=== PATIENT | female | born 1970 | race Caucasian/White ===

== ENCOUNTER 2017-11-30 19:53 | Emergency (ER) | payer BC, SELFPAY ==
[2017-11-30 20:16] VITALS: BP 120/78; PULSE 90; RESP 18; TEMP 37.2; O2SAT 97; BMI 18.8
--- NOTE | 2017-11-30 20:25 | HMH.EDUTC ---
[facility] [place] Disposition Clinical Impression: Sinusitis Qualifiers: Sinusitis location: maxillary Chronicity: acute Recurrence: non-recurrent Qualified Code(s): J01.00 - Acute maxillary sinusitis, unspecified Disposition: Home, Self-Care Condition on Discharge: Good Instructions: DI for Sinusitis Prescriptions: Amoxicillin/Potassium Clav [Augmentin 875-125 Tablet] 1 tab PO Q12H 10 Days #20 tab methylPREDNISolone [Medrol] 4 mg PO DAILY 6 Days #21 tab.ds.pk Referrals: Liudmila Crowder APRN [Primary Care Provider] - Time of Disposition: 20:38 Medical Decision Making - Antonio Inquiry Pt receiving controlled substance: No Vital Signs: 11/30/17 20:16 Temperature 99 F Temperature Source Oral Pulse Rate [Right Radial] 90 Respiratory Rate 18 Blood Pressure [Right Arm] 120/78 Blood Pressure Mean [Right Arm] 92 Blood Pressure Source [Right Arm] Automatic Cuff Blood Pressure Position [Right Arm] Sitting 02 Sat by Pulse Oximetry 97 Oxygen Delivery Method Room Air - Lab Data Lab results reviewed: Yes: I reviewed the patient's lab results. [facility] [place] HPI - General Stated complaint: cough,congestion Time Seen by Provider: 11/30/17 20:25 Mode of Arrival: Family Vehicle Source of Information: Patient Limitations: No Limitations Description of Symptoms (Recalled from Triage Doc. by RN): PT C/O HEADACHE,SORE THROAT,CONGESTION FOR 2 DAYS. HEENT Symptoms (Recalled from RN notes): Yes (HEADACHE, SORE THROAT, CONGESTION) Resp Symptoms (Recalled from RN notes): No Skin Symptoms (Recalled from RN notes): No MS Symptoms (Recalled from RN notes): No Functional Status (Recalled from RN notes): NA - History of Present Illness Provider Complaint: Cough, congestion, bilateral ear pain X 2-3 days. No fever. Has been extremely tired and fatigued. No vomiting or diarrhea. Onset (ago): day(s) (3) Location: chest Relieving factors: none Exacerbating factors: none Associated symptoms: cough, headaches, malaise Treatments prior to arrival: none - Related Data Home Medications Medication Instructions Recorded Confirmed ALPRAZolam [Alprazolam 0.25mg 0.25 mg PO DAILY 11/30/17 11/30/17 Tab] Cyclobenzaprine HCl 10 mg PO DAILY 11/30/17 11/30/17 [Cyclobenzaprine 10mg Tab] Fenofibrate Nanocrystallized 145 mg PO DAILY 11/30/17 11/30/17 [Fenofibrate] Fluoxetine HCl [Fluoxetine HCl] 40 mg PO DAILY 11/30/17 11/30/17 Levothyroxine Sodium 50 mcg PO DAILY 11/30/17 11/30/17 [Levothyroxine 50mcg (0.05mg) Tab] Omeprazole [Omeprazole 20mg 20 mg PO DAILY 11/30/17 11/30/17 Capsule] Simvastatin [Simvastatin] 20 mg PO DAILY 11/30/17 11/30/17 Spironolactone [Spironolactone 25 mg PO DAILY 11/30/17 11/30/17 25mg Tab] Previous Rx's Medication Instructions Recorded Amoxicillin/Potassium Clav 1 tab PO Q12H 10 Days #20 tab 11/30/17 [Augmentin 875-125 Tablet] methylPREDNISolone [Medrol] 4 mg PO DAILY 6 Days #21 tab.ds.pk 11/30/17 Allergies Allergy/AdvReac Type Severity Reaction Status Date / Time No Known Allergies Allergy Verified 11/30/17 20:22 - Worker's Comp Is this a Worker's Comp case?: No [facility] History I have reviewed the patient's past medical history: Yes Medical History: Denies:: Cancer, Diabetes Mellitus Type 1, Diabetes Mellitus Type 2, MRSA Laterality Cases: Bilateral: Tonsillectomy Amputation: No Fractures: No - Social History Smoking Status: Never smoker Alcohol Intake: never - Psychiatric History Expresses thoughts of harming self/others: None Suicide Plan Description: No Plan ROS Obtained: Yes All systems reviewed & no additional complaints - Constitutional Constitutional: Reports fever(s) - ENT Ears, Nose, Mouth, and Throat: Reports nasal congestion, Reports sinus pain, Reports sore throat - Respiratory Respiratory: Yes cough Physical Exam - General General appearance: alert, in no apparent distress - Head Head exam: atraumatic, normocephalic, normal inspection -
[2017-11-30 20:27] LABS: UTC Strep Screen (Rapid) Negative (Negative)
[2017-11-30 20:31] LABS: UTC Influenza A Antigen Negative (Negative); UTC Influenza B Antigen Negative (Negative)
--- NOTE | 2017-11-30 20:34 | ED_ITS ---
[facility] [place] Clinical Impression: Sinusitis Qualifiers: Sinusitis location: maxillary Chronicity: acute Recurrence: non-recurrent Qualified Code(s): J01.00 - Acute maxillary sinusitis, unspecified Disposition: Home, Self-Care Condition on Discharge: Good Instructions: DI for Sinusitis Prescriptions: Amoxicillin/Potassium Clav [Augmentin 875-125 Tablet] 1 tab PO Q12H 10 Days #20 tab methylPREDNISolone [Medrol] 4 mg PO DAILY 6 Days #21 tab.ds.pk Referrals: Liudmila Crowder APRN [Primary Care Provider] - Time of Disposition: 20:38 Medical Decision Making - Antonio Inquiry Pt receiving controlled substance: No Vital Signs: 11/30/17 20:16 Temperature 99 F Temperature Source Oral Pulse Rate [Right Radial] 90 Respiratory Rate 18 Blood Pressure [Right Arm] 120/78 Blood Pressure Mean [Right Arm] 92 Blood Pressure Source [Right Arm] Automatic Cuff Blood Pressure Position [Right Arm] Sitting 02 Sat by Pulse Oximetry 97 Oxygen Delivery Method Room Air - Lab Data Lab results reviewed: Yes: I reviewed the patient's lab results. [facility] [place] HPI - General Stated complaint: cough,congestion Time Seen by Provider: 11/30/17 20:25 Mode of Arrival: Family Vehicle Source of Information: Patient Limitations: No Limitations Description of Symptoms (Recalled from Triage Doc. by RN): PT C/O HEADACHE,SORE THROAT,CONGESTION FOR 2 DAYS. HEENT Symptoms (Recalled from RN notes): Yes (HEADACHE, SORE THROAT, CONGESTION) Resp Symptoms (Recalled from RN notes): No Skin Symptoms (Recalled from RN notes): No MS Symptoms (Recalled from RN notes): No Functional Status (Recalled from RN notes): NA - History of Present Illness Provider Complaint: Cough, congestion, bilateral ear pain X 2-3 days. No fever. Has been extremely tired and fatigued. No vomiting or diarrhea. Onset (ago): day(s) (3) Location: chest Relieving factors: none Exacerbating factors: none Associated symptoms: cough, headaches, malaise Treatments prior to arrival: none - Related Data Home Medications Medication Instructions Recorded Confirmed ALPRAZolam [Alprazolam 0.25mg 0.25 mg PO DAILY 11/30/17 11/30/17 Tab] Cyclobenzaprine HCl 10 mg PO DAILY 11/30/17 11/30/17 [Cyclobenzaprine 10mg Tab] Fenofibrate Nanocrystallized 145 mg PO DAILY 11/30/17 11/30/17 [Fenofibrate] Fluoxetine HCl [Fluoxetine HCl] 40 mg PO DAILY 11/30/17 11/30/17 Levothyroxine Sodium 50 mcg PO DAILY 11/30/17 11/30/17 [Levothyroxine 50mcg (0.05mg) Tab] Omeprazole [Omeprazole 20mg 20 mg PO DAILY 11/30/17 11/30/17 Capsule] Simvastatin [Simvastatin] 20 mg PO DAILY 11/30/17 11/30/17 Spironolactone [Spironolactone 25 mg PO DAILY 11/30/17 11/30/17 25mg Tab] Previous Rx's Medication Instructions Recorded Amoxicillin/Potassium Clav 1 tab PO Q12H 10 Days #20 tab 11/30/17 [Augmentin 875-125 Tablet] methylPREDNISolone [Medrol] 4 mg PO DAILY 6 Days #21 tab.ds.pk 11/30/17 Allergies Allergy/AdvReac Type Severity Reaction Status Date / Time No Known Allergies Allergy Verified 11/30/17 20:22 - Worker's Comp Is this a Worker's Comp case?: No H History I have reviewed the patient's past medical history: Yes Medical History: Denies:: Cancer, Diabetes Mellitus Type 1,
[2017-11-30 20:49] VITALS: BP 115/83; PULSE 85; RESP 16; TEMP 36.9; O2SAT 100
== END 2017-11-30 20:54 | disposition home or self-care (01) ==
PROVIDERS: Emergency Provider Physician Assistant; PCP Nurse Practitioner
DX: J01.00 Acute maxillary sinusitis, unspecified (principal)
CPT/HCPCS: 87804; 87880; 96372; 99202

== ENCOUNTER → 2018-05-05 16:14 | Outpatient (CLI) | payer BC, SELFPAY ==
--- NOTE | 2018-05-05 16:18 | MM_ITS ---
MM Dig screening mamm BI w/CAD CAD Screening COMPARISON: Digital mammograms with CAD 04/14/2017 and 04/12/2016 INDICATION: There is a history of breast cancer in patient's maternal great-grandmother TECHNIQUE: Standard CC and MLO images were obtained. R2 CAD reviewed. FINDINGS: There is a diffusely dense and heterogenic parenchymal pattern lessening the sensitivity of mammography. The findings of the lateral symmetrical. There are couple benign-appearing calcifications left breast. There is no suspicious lesion and there are no suspicious microcalcifications. IMPRESSION: Dense parenchymal pattern with no suspicious lesion seen BI-RADS Category: 2 Benign Finding(s) RECOMMENDED FOLLOW-UP: 1YR - 1 YEAR FOLLOW-UP (A letter has been sent to the patient regarding results of the study.)
== END ==
PROVIDERS: PCP Nurse Practitioner; Visit Provider Obstetrics & Gynecology
DX: Z12.31 Encounter for screening mammogram for malignant neoplasm of breast (principal)
CPT/HCPCS: 77067

== ENCOUNTER → 2018-05-06 14:34 | Outpatient (POV) | payer BC, SELFPAY | PROVIDERS: PCP Nurse Practitioner | DX: Z00.00 Encounter for general adult medical examination without abnormal findings (principal) ==

== ENCOUNTER → 2019-06-09 08:06 | Outpatient (CLI) | payer BC, SELFPAY ==
--- NOTE | 2019-06-09 08:08 | MM_ITS ---
PROCEDURE: MM DIG SCREENING MAMM BI W/CAD CLINICAL INDICATION: SCREENING There is a history of breast cancer in the patient's maternal great grandmother. There is been previous biopsy right breast for benign disease. COMPARISON: [facility] DIG MAMM-SCREEN [facility] from 04/12/2016 [facility] DIG MAMM-SCREEN [facility] W/CAD from 04/14/2017 [facility] MM Dig screening mamm BI w/CAD from 05/05/2018 TECHNIQUE: Standard CC and MLO images were obtained. R2 CAD reviewed. FINDINGS: Prominent heterogenic fibroglandular densities are seen in the central portions of both breasts and findings are bilateral and symmetrical. IMPRESSION: There are stable nodular densities in each breast. There is no suspicious lesion and no suspicious microcalcifications. BI-RAD Category: 2 Benign Finding(s) FOLLOW-UP: 1YR 1 Year Follow-up (A letter has been sent to the patient regarding results of the study.) Dictated by: Dr. Yovany Zapata MD 06/09/2019 11:[address] Yovany Zapata MD in [place] 06/09/2019 11:42
== END ==
PROVIDERS: PCP Nurse Practitioner; Visit Provider Obstetrics & Gynecology
DX: Z12.31 Encounter for screening mammogram for malignant neoplasm of breast (principal)
CPT/HCPCS: 77067

== ENCOUNTER → 2019-06-23 13:34 | Outpatient (POV) | payer BC, SELFPAY | PROVIDERS: Visit Provider Internal Medicine | DX: Z00.00 Encounter for general adult medical examination without abnormal findings (principal) ==

== ENCOUNTER → 2020-06-13 16:13 | Outpatient (CLI) | payer BC, SELFPAY ==
--- NOTE | 2020-06-13 16:16 | MM_ITS ---
PROCEDURE: MM DIG SCREENING MAMM BI W/CAD Digital Breast Tomosynthesis Included CLINICAL INDICATION: SCREENING There is a history of breast cancer in the patient's maternal great grandmother. There has been a previous biopsy right breast for benign disease. COMPARISON: MG [facility] DIG MAMM-SCREEN [facility] W/CAD from 04/14/2017 MG [facility] MM Dig screening mamm BI w/CAD from 05/05/2018 MG MM DIG SCREENING MAMM BI W/CAD from 06/09/2019 TECHNIQUE: Standard CC and MLO images and 3D Tomosynthesis was obtained. R2 CAD reviewed. FINDINGS: Prominent diffuse somewhat heterogenic fibroglandular densities are seen in both breast primarily upper outer quadrants. The findings are bilateral and symmetrical. There is a stable benign-appearing nodular density left breast. There is no suspicious lesion and no suspicious microcalcifications. IMPRESSION: Moderately dense and heterogenic parenchymal pattern with no suspicious lesions seen BI-RAD Category: 2 Benign Finding(s) FOLLOW-UP: 1YR 1 Year Follow-up (A letter has been sent to the patient regarding results of the study.) Dictated by: Dr. Yovany Zapata MD 06/19/2020 10:26 Dr. Yovany Zapata MD in [place] 06/19/2020 10:26
== END ==
PROVIDERS: PCP Nurse Practitioner; Visit Provider Obstetrics & Gynecology
DX: Z12.31 Encounter for screening mammogram for malignant neoplasm of breast (principal)
CPT/HCPCS: 77063; 77067

== ENCOUNTER → 2020-07-26 14:38 | Outpatient (POV) | payer BC, SELFPAY | DX: Z00.00 Encounter for general adult medical examination without abnormal findings (principal) ==

== ENCOUNTER 2020-08-27 16:49 | Emergency (ER) | payer BC, SELFPAY ==
[2020-08-27 16:55] VITALS: BP 130/68; PULSE 92; RESP 18; TEMP 36.7; O2SAT 99; BMI 32.1
--- NOTE | 2020-08-27 17:08 | HMH.EDUTC ---
[facility] [place] Clinical Impression: Encounter for laboratory testing for COVID-19 virus Disposition: Home, Self-Care Condition on Discharge: Good Instructions: DI for Nasal Congestion, Preventing the Spread of Coronavirus Discharge Instructions Additional Instructions: *Monitor Temp, Over the counter Motrin or Tylenol as directed/as needed Tylenol every 4 hours and Motrin every 6 hours (as long as your family doctor has told you that you can take it) for fever or pain. and straight to ER if unable to lower temp less than 101.0 after medication given *Warm salt water gargles may help to soothe the throat *Throat Lozenges *Warm fluids like tea with honey may help to soothe the throat *Sleep elevated *Humidifier/Vaporizer Follow up IMMEDIATELY for new or worsening symptoms or no Noticeable improvement over the next 48-72 hours. 911 for difficulty breathing or swallowing You were tested for today for COVID19 your test result should be back in the next 24-48 hours, you may call to the [facility] to see if your test results are back in the next 48 hours [phone] [facility] hours are 9am-9pm You was given a handout with instructions for Self Quarantine and Self isolation for while you wait on test results and what to do if they are positive If you are positive the Health Dept will be contacting you also Referrals: Liudmila Crowder APRN [Primary Care Provider] - As needed Forms: Work/School Release Time of Disposition: 17:09 Medical Decision Making - Antonio Inquiry Pt receiving controlled substance: No Antonio was queried for this patient: No Vital Signs: 08/27/20 16:55 Temperature 98.1 F Temperature Source Oral Pulse Rate [Radial] 92 H Respiratory Rate 18 Blood Pressure [Right Arm] 130/68 Blood Pressure Mean [Right Arm] 88 Blood Pressure Source [Right Arm] Automatic Cuff Blood Pressure Position [Right Arm] Sitting 02 Sat by Pulse Oximetry 99 Oxygen Delivery Method Room Air Orders (Tests/Meds): ORDERS Category Date Time Status Covid-19 Nasal PCR Sendout [facility] 08/27/20 16:55 [place] [facility] [place] - General Stated complaint: Cold symptoms;No taste or smell. Time Seen by Provider: 08/27/20 17:08 Mode of Arrival: Ambulatory Source of Information: Patient Limitations: No Limitations Description of Symptoms (Recalled from Triage Doc. by RN): cold like symptoms, no taste or smell. HEENT Symptoms (Recalled from RN notes): Yes Resp Symptoms (Recalled from RN notes): No Skin Symptoms (Recalled from RN notes): No MS Symptoms (Recalled from RN notes): No Functional Status (Recalled from RN notes): wnl - History of Present Illness Provider Complaint: Patient states that she has been having nasal congestion on and off for a week like she normally has this time of year State that she noticed yesterday that the food she was eating tasted funny and continued to get worse throughout the evening States that today she noticed she is unable to smell or taste anything so she came in to get tested for COVID - Related Data Home Medications Medication Instructions Recorded Confirmed ALPRAZolam [Alprazolam 0.25mg 0.25 mg PO DAILY 11/30/17 07/01/18 Tab] Fenofibrate Nanocrystallized 145 mg PO DAILY 11/30/17 07/01/18 [Fenofibrate] Fluoxetine HCl 40 mg PO DAILY 11/30/17 07/01/18 Levothyroxine Sodium 50 mcg PO DAILY 11/30/17 07/01/18 [Levothyroxine 50mcg (0.05mg) Tab] Omeprazole [Omeprazole 20mg 20 mg PO DAILY 11/30/17 07/01/18 Capsule] Simvastatin 20 mg PO DAILY 11/30/17 07/01/18 Spironolactone [Spironolactone 25 mg PO DAILY 11/30/17 07/01/18 25mg Tab] Previous Rx's Medication Instructions Recorded amoxicillin 500 mg capsule 500 mg PO Q12H 10 Days #20 cap 01/03/19 Allergies Allergy/AdvReac Type Severity Reaction Status Date / Time No Known Allergies Allergy Verified 01/03/19 11:31 - Worker's Comp Is this a Worker's Comp case?: No H History - Hepatitis A Screen Drug
[2020-08-27 17:19] VITALS: BP 130/68; PULSE 92; RESP 18; TEMP 36.7; O2SAT 99
[2020-08-29 13:05] LABS: Covid-19 Nasal PCR Sendout Lex Positive
--- NOTE | 2020-08-29 13:09 | PC.NURSE ---
PT CALLED AND NOTIFIED OF POSITIVE COVID RESULT
== END 2020-08-27 17:21 | disposition home or self-care (01) ==
PROVIDERS: Emergency Provider Nurse Practitioner; PCP Nurse Practitioner
DX: U07.1 COVID-19 (principal); K21.9 Gastro-esophageal reflux disease without esophagitis; E78.5 Hyperlipidemia, unspecified; Z79.899 Other long term (current) drug therapy
CPT/HCPCS: 99201; U0004

== ENCOUNTER → 2020-12-18 09:17 | Outpatient (CLI) | payer BC, SELFPAY ==
--- NOTE | 2020-12-18 09:25 | XR_ITS ---
PROCEDURE: XR MULTIPLE SPINE 6+V CLINICAL INDICATION: CERVICALGIA, LOW BACK PAIN COMPARISON: No exams were available for comparison FINDINGS: Cervical spine: Normal alignment. Mild degenerative disc disease C5-C6 with minimal endplate hypertrophic change. Foraminal narrowing is present on the right and to lesser degree on the left at C5-C6. Lumbar spine: Facet arthritic changes are noted at L4-5 and L5-S1 with bony hypertrophy and osteosclerosis. There is grade 2 spondylitic spondylolisthesis of L5 on S1 of approximately 19 mm with degenerative disc disease at that level. IMPRESSION: Cervical spine: Normal alignment. Mild degenerative disc disease C5-C6 with minimal endplate hypertrophic change. Foraminal narrowing is present on the right and to lesser degree on the left at C5-C6. No acute fracture. No lytic or blastic change Lumbar spine: Facet arthritic changes are noted at L4-5 and L5-S1 with bony hypertrophy and osteosclerosis. There is grade 2 spondylitic spondylolisthesis of L5 on S1 of approximately 19 mm with degenerative disc disease at that level. No acute fracture. No lytic or blastic change Dictated by: Kervin Medina MD 12/18/2020 11:01 Kervin Medina MD in [place] 12/18/2020 11:01
== END ==
PROVIDERS: PCP Nurse Practitioner Family; Visit Provider Family Medicine
DX: M54.2 Cervicalgia (principal); M54.5 Low back pain
CPT/HCPCS: 72084

== ENCOUNTER → 2021-01-11 13:41 | Outpatient (POV) | payer BC, SELFPAY ==
[2021-01-11 14:02] VITALS: BP 141/74; PULSE 74; RESP 18; O2SAT 98; BMI 31.8
--- NOTE | 2021-01-15 08:25 | HMH.PMCON ---
Assessment and Plan (1) Neck pain Status: Chronic Category: Medical Code(s): M54.2 - Cervicalgia (2) Degenerative disc disease, cervical Status: Chronic Category: Medical Code(s): M50.30 - Other cervical disc degeneration, unspecified cervical region (3) Degenerative disc disease, lumbar Status: Chronic Category: Medical Code(s): M51.36 - Other intervertebral disc degeneration, lumbar region (4) Back pain Status: Chronic Category: Medical Code(s): M54.9 - Dorsalgia, unspecified - Assessment and plan all Dx Assessment and Plan for all problems:: The patient is on a very appropriate dose of Anahola 5 mg 1 p.o. 3 times daily. I discussed with her that if she is uninterested in our offerings interventionally. That I would recommend to continue her current dose. Patient does have an appropriate ORT and has done well with this. If patient finds that her medication needs increase at that time she is welcome to return for reconsideration of injective therapy. Dr. Lance has reviewed this note and agrees with this plan of care. This note was dictated using voice recognition software and may contain errors or omissions HPI - Data of Consult Consult date: 01/11/21 Requesting Physician: Regina Agarwal APRN Primary Care Provider: Keke Garcia APRN - Consult Narrative Reason for consult: Back pain History of present illness: Ms. Diane is a 50 year old female who presents today for consultation regards to her neck and low back pain. Patient states all activity increases pain while nothing truly decreases it. She has numbness and tingling in all extremities. Patient started having issues with her lower back back in 2000 and began having issues with her neck in 2008. Patient has seen child day care teacher, physical therapy. Patient is currently on a medication regimen that includes Anahola 5 mg 1 p.o. 3 times daily. Patient states that this is very beneficial for her. Patient and I had a discussion in regards to what we can offer her at this location. Patient is uninterested in injective therapy. She is also uninterested in any implantable therapies. Patient is uninterested in pursuing any kind of surgical consultation. Patient states that at this time she feels that she is managed well with her Anahola. CC: Regina Agarwal APRN [facility] History I have reviewed the patient's past medical history: Yes Medical History: Reports:: Gastroesophageal Reflux Disease(GERD), Hyperlipidemia Denies:: Cancer, Diabetes Mellitus Type 1, Diabetes Mellitus Type 2, MRSA *Have you ever received a pneumonia vaccine?: Yes *Have you received a flu vaccine this season?: Yes Other Medical History: Reports: Arthritis, Hypothyroidism Laterality Cases: Bilateral: Tonsillectomy Other Surgeries: Yes: Hysterectomy-Total, Sinus Surgery Amputation: No Fractures: No - *Social History Smoking Status: Never smoker Alcohol Intake: never Substance Use Type: denies use *Occupational Status:: other Housing: house Household Members: other *Travel in the last 8 weeks: None Family Hx:: No significant family history Review of Systems - Review of Systems ROS General: no recent weight change, no fever, no sleep disturbances Respiratory: no cough, no shortness of air, no recurring pulmonary infections Cardiovascular/Peripheral Vascular: No chest pain, No palpitations, no edema, no shortness of breath. Gastrointestinal: no new onset incontinence, normal bowel movements reported Genitourinary: no new onset incontinence Musculoskeletal: Neck pain, back pain Psychiatric: normal mood/ affect Neurological: [denies new onset weakness in extremities], [denies new onset balance issues] Meds Home Medications Medication Instructions Recorded Confirmed Type ALPRAZolam [Alprazolam 0.25mg 0.25 mg PO DAILY 11/30/17 07/01/18 History Tab] Fenofibrate Nanocrystallized 145 mg PO DAILY 11/30/17 07/01/18 History [Fenofibrate]
== END ==
PROVIDERS: PCP Nurse Practitioner Family; Visit Provider Clinical Nurse Specialist Family Health
DX: M50.30 Other cervical disc degeneration, unspecified cervical region (principal); M51.36 Other intervertebral disc degeneration, lumbar region
CPT/HCPCS: 99202; G0463

== ENCOUNTER → 2021-06-25 10:10 | Outpatient (CLI) | payer BC, SELFPAY ==
--- NOTE | 2021-06-25 10:10 | MM_ITS ---
PROCEDURE INFORMATION: Exam: MG Bilateral Screening 3D Mammography Exam date and time: 06/25/2021 10:10 AM Age: 50 years old Clinical indication: Encounter for screening mammogram for malignant neoplasm of breast TECHNIQUE: Imaging protocol: Bilateral screening tomosynthesis and 2D mammography including computer-aided detection (CAD) when performed. COMPARISON: 06/13/2020, 06/09/2019, 05/05/2018, 04/14/17 FINDINGS: MAMMOGRAPHY: Breast composition: The breasts are heterogeneously dense, which may obscure small masses. Mass: No suspicious masses. Architectural distortion: No suspicious distortion. Calcifications: No suspicious calcifications. Asymmetric density: None. Skin thickening: None. Axillary adenopathy: None. IMPRESSION: No mammographic evidence of malignancy. Annual screening is recommended unless otherwise clinically indicated. ASSESSMENT: BI-RADS Category 1: Negative
== END ==
PROVIDERS: PCP Family Medicine; Visit Provider Obstetrics & Gynecology
DX: Z12.31 Encounter for screening mammogram for malignant neoplasm of breast (principal)
CPT/HCPCS: 77063; 77067

== ENCOUNTER → 2021-08-12 20:37 | Outpatient (CLI) | payer BC, SELFPAY | PROVIDERS: PCP Family Medicine; Visit Provider Nurse Practitioner | DX: Z20.822 Contact with and (suspected) exposure to COVID-19 (principal) | CPT/HCPCS: C9803; U0003; U0005 ==

== ENCOUNTER → 2021-08-14 17:49 | Outpatient (CLI) | payer BC, SELFPAY | PROVIDERS: PCP Family Medicine; Visit Provider Nurse Practitioner | DX: Z20.822 Contact with and (suspected) exposure to COVID-19 (principal) | CPT/HCPCS: C9803; U0003; U0005 ==

== ENCOUNTER → 2022-06-27 09:39 | Outpatient (CLI) | payer BC, SELFPAY ==
--- NOTE | 2022-06-27 09:40 | MM_ITS ---
PROCEDURE INFORMATION: Exam: MG Bilateral Screening 3D Mammography Exam date and time: 06/27/2022 9:39 AM Age: 51 years old Clinical indication: Screening examination TECHNIQUE: Imaging protocol: Bilateral Screening tomosynthesis and 2D mammography including computer-aided detection (CAD) when performed. COMPARISON: 1. MG MM DIG SCREENING MAMM BI W/CAD 06/25/2021 10:23 AM 2. MG MM DIG SCREENING MAMM BI W/CAD 06/13/2020 4:18 PM FINDINGS: MAMMOGRAPHY: Breast composition: The breasts are heterogeneously dense, which may obscure small masses. Mass: None. Architectural distortion: None. Calcifications: No suspicious calcifications. Asymmetric density: None. Skin thickening: None. Axillary adenopathy: None. IMPRESSION: No mammographic evidence of malignancy. Annual screening is recommended unless otherwise clinically indicated. ASSESSMENT: BI-RADS Category 1: Negative
== END ==
PROVIDERS: PCP Family Medicine; Visit Provider Obstetrics & Gynecology
DX: Z12.31 Encounter for screening mammogram for malignant neoplasm of breast (principal)
CPT/HCPCS: 77063; 77067

== ENCOUNTER → 2023-06-30 08:12 | Outpatient (CLI) | payer BC, SELFPAY ==
--- NOTE | 2023-06-30 08:12 | MM_ITS ---
PROCEDURE INFORMATION: Exam: MG Bilateral Screening 3D Mammography Exam date and time: 06/30/2023 8:05 AM Age: 52 years old Clinical indication: Screening examination TECHNIQUE: Imaging protocol: Bilateral Screening tomosynthesis and 2D mammography including computer-aided detection (CAD) when performed. COMPARISON: 1. MG MM DIG SCREENING MAMM BI W/CAD 06/27/2022 9:39 AM 2. MG MM DIG SCREENING MAMM BI W/CAD 06/25/2021 10:23 AM FINDINGS: MAMMOGRAPHY: Breast composition: The breasts are heterogeneously dense, which may obscure small masses. Mass: None. Architectural distortion: None. Calcifications: No suspicious calcifications. Asymmetric density: None. Skin thickening: None. Axillary adenopathy: None. IMPRESSION: No mammographic evidence of malignancy. Annual screening is recommended unless otherwise clinically indicated. ASSESSMENT: BI-RADS Category 1: Negative
== END ==
PROVIDERS: PCP Family Medicine; Visit Provider Obstetrics & Gynecology
DX: Z12.31 Encounter for screening mammogram for malignant neoplasm of breast (principal)
CPT/HCPCS: 77063; 77067

== ENCOUNTER 2024-05-19 10:14 | Outpatient (CLI) | payer BC, SELFPAY | END 2024-05-19 23:59 | disposition home or self-care (01) | LOC: LAB 10:16 | PROVIDERS: PCP Family Medicine; Visit Provider Family Medicine | DX: Z02.9 Encounter for administrative examinations, unspecified (principal) ==

== ENCOUNTER 2024-07-01 09:37 | Outpatient (CLI) | payer BC, SELFPAY ==
--- NOTE | 2024-07-01 09:40 | MM_ITS ---
PROCEDURE INFORMATION: Exam: MG Bilateral Screening 3D Mammography Exam date and time: 07/01/2024 9:43 AM Age: 53 years old Clinical indication: Screening exam. TECHNIQUE: Imaging protocol: Bilateral Screening tomosynthesis and 2D mammography including computer-aided detection (CAD) when performed. COMPARISON: 1. MG MM DIG SCREENING MAMM BI W/CAD 06/30/2023 8:05 AM 2. MG MM DIG SCREENING MAMM BI W/CAD 06/27/2022 9:39 AM FINDINGS: MAMMOGRAPHY: Breast composition: The breasts are heterogeneously dense, which may obscure small masses. Mass: 0.7 cm questioned mass left lateral breast middle depth. Architectural distortion: None. Calcifications: No suspicious calcifications. Asymmetric density: None. Skin thickening: None. Axillary adenopathy: None. IMPRESSION: Questioned subcentimeter left breast mass.Recommend left breast diagnostic mammogram including spot compression views of the left breast in the CC and MLO projections, a full 90 degree lateral view, and left breast ultrasound for further evaluation. ASSESSMENT: BI-RADS Category 0: Incomplete- Need Additional Imaging Evaluation.
== END 2024-07-01 23:59 | disposition home or self-care (01) ==
LOC: RAD 09:40
PROVIDERS: PCP Family Medicine; Visit Provider Obstetrics & Gynecology
DX: Z12.31 Encounter for screening mammogram for malignant neoplasm of breast (principal)
CPT/HCPCS: 77063; 77067

== ENCOUNTER 2024-07-28 14:16 | Outpatient (CLI) | payer BC, SELFPAY ==
--- NOTE | 2024-07-28 14:16 | MM_ITS ---
PROCEDURE INFORMATION: Exam: US Left Breast, Complete MG Left Diagnostic Breast Tomosynthesis Exam date and time: 07/28/2024 2:03 PM Age: 53 years old Clinical indication: Callback for mass in the left breast on screening mammogram. TECHNIQUE: Imaging protocol: Complete ultrasound of all four quadrants of the left breast and the retroareolar regions, including ultrasound of the axilla when performed. Left Diagnostic tomosynthesis and 2D mammography including computer-aided detection (CAD) when performed. Unilateral or bilateral exam. COMPARISON: 1. MG MM DIG SCREENING MAMM BI W/CAD 07/01/2024 9:43 AM 2. MG MM DIG SCREENING MAMM BI W/CAD 06/30/2023 8:05 AM FINDINGS: MAMMOGRAPHY: Breast composition: The breasts are heterogeneously dense, which may obscure small masses (based on the most recent screening mammogram report). Breast mammogram findings: Spot compression views demonstrate an ovoid 0.6 cm mass in the lower outer quadrant the left breast at the middle depth. No associated distortion or suspicious calcifications. ULTRASOUND: Breast ultrasound findings: Ultrasound of the left breast in the lower outer quadrant demonstrates a cyst at 4 o'clock, 3 cm from the nipple measuring 0.5 x 0.3 x 0.5 cm. This is uncertain whether this correlates to the mammogram finding. No suspicious masses are seen. There are lymph nodes in upper-outer quadrant the left breast, with a lymph node located at the 1 o'clock axis, 8 cm from the nipple measuring 0.8 x 0.3 x 0.8 cm. There is no distortion, shadowing, or skin thickening. IMPRESSION: Probably benign 0.6 cm mass in the lower outer quadrant of the left breast, which may correlate to a lymph node at the 4 o'clock axis, 3 cm from the nipple. Six-month follow-up left breast mammogram and ultrasound recommended. ASSESSMENT: BI-RADS Category 3: Probably benign.
== END 2024-07-28 23:59 | disposition home or self-care (01) ==
LOC: RAD 14:16
PROVIDERS: PCP Family Medicine; Visit Provider Obstetrics & Gynecology
DX: R92.8 Other abnormal and inconclusive findings on diagnostic imaging of breast (principal)
CPT/HCPCS: 76641; 77061; 77065; G0279

== ENCOUNTER 2025-02-23 09:38 | Outpatient (CLI) | payer BC, SELFPAY ==
--- NOTE | 2025-02-23 09:44 | MM_ITS ---
PROCEDURE INFORMATION: Exam: US Left Breast, Complete MG Left Diagnostic Breast Tomosynthesis MG Left Diagnostic Mammography Exam date and time: 02/23/2025 10:01 AM Age: 54 years old Clinical indication: Short-term radiographic followup; Left breast; mass TECHNIQUE: Imaging protocol: Complete ultrasound of all four quadrants of the left breast and the retroareolar regions, including ultrasound of the axilla when performed. Left Diagnostic tomosynthesis and 2D mammography including computer-aided detection (CAD) when performed. Unilateral or bilateral exam. Left Diagnostic mammography including computer-aided detection (CAD) when performed. Unilateral exam. COMPARISON: US BREAST LT COMPLETE 07/28/2024 2:28 PM FINDINGS: MAMMOGRAPHY: Breast composition: The breast is heterogeneously dense, which may obscure small masses. Breast mammogram findings: There is no stellate mass, architectural distortion or suspicious microcalcifications to suggest malignancy. No skin thickening or axillary adenopathy. Previously noted 0.6 cm mass in the lower outer left breast is less apparent on the current examination ULTRASOUND: Breast ultrasound findings: Sonographic images of the left breast including the retroareolar region, all 4 quadrants and the axilla do not demonstrate any solid masses. Incidental 0.4 cm cyst in the 4 o'clock axis 3 cm from the nipple. No architectural distortion or acoustical shadowing. No skin thickening or axillary adenopathy. IMPRESSION: No mammographic or sonographic evidence of malignancy. Annual bilateral mammographic screening is recommended in July 2025 unless otherwise clinically indicated. ASSESSMENT: BI-RADS Category 2: Benign.
== END 2025-02-23 23:59 | disposition home or self-care (01) ==
LOC: RAD 09:39
PROVIDERS: PCP Family Medicine; Visit Provider Obstetrics & Gynecology
DX: N63.23 Unspecified lump in the left breast, lower outer quadrant (principal); N60.02 Solitary cyst of left breast; R92.332 Mammographic heterogeneous density, left breast
CPT/HCPCS: 76641; 77061; 77065; G0279

== ENCOUNTER 2025-08-26 16:32 | Outpatient (CLI) | payer MEDICARE, SELFPAY ==
--- NOTE | 2025-08-26 16:30 | MM_ITS ---
PROCEDURE INFORMATION: Exam: MG Bilateral Screening 3D Mammography Exam date and time: 08/26/2025 4:39 PM Age: 54 years old Clinical indication: Screening examination; TECHNIQUE: Imaging protocol: Bilateral Screening tomosynthesis and 2D mammography including computer-aided detection (CAD) when performed. COMPARISON: 1. MG MM DIG MAMM DX UNILAT LT CAD 02/23/2025 9:49 AM 2. MG MM DIG MAMM DX UNILAT LT CAD 07/28/2024 2:03 PM 3. MG MM DIG SCREENING MAMM BI W/CAD 07/01/2024 9:43 AM 4. MG MM DIG SCREENING MAMM BI W/CAD 06/30/2023 8:05 AM FINDINGS: MAMMOGRAPHY: Breast composition: The breasts are heterogeneously dense, which may obscure small masses. Mass: No suspicious masses. Architectural distortion: No suspicious distortion. Calcifications: No suspicious calcifications. Asymmetric density: None. Skin thickening: None. Axillary adenopathy: None. IMPRESSION: No mammographic evidence of malignancy. Annual screening is recommended unless otherwise clinically indicated. ASSESSMENT: BI-RADS Category 1: Negative.
== END 2025-08-26 23:59 | disposition home or self-care (01) ==
LOC: RAD 16:34
PROVIDERS: PCP Family Medicine; Referring Provider Obstetrics & Gynecology; Visit Provider Obstetrics & Gynecology
DX: Z12.31 Encounter for screening mammogram for malignant neoplasm of breast (principal); R92.333 Mammographic heterogeneous density, bilateral breasts
CPT/HCPCS: 77063; 77067